=== PATIENT | female | born 1990 | race African-American/Black ===

== ENCOUNTER 2017-09-16 10:14 | Emergency (ER) | payer OTHER ==
[~2017-09-16] VITALS: Ht 167.6 cm; Wt 69.4 kg
[2017-09-16 10:58] LABS: microscopic required? YES; urine erythrocyte NEGATIVE (NEGATIVE)
[2017-09-16 12:29] VITALS: BP 111/79
== END 2017-09-16 12:27 | disposition home or self-care (01) ==
LOC: ED 10:14
DX: N39.0 Urinary tract infection, site not specified (principal); I10 Essential (primary) hypertension; R09.81 Nasal congestion; E11.9 Type 2 diabetes mellitus without complications

== ENCOUNTER 2017-12-11 08:51 | Emergency (ER) | payer MEDICAID ==
[~2017-12-11] VITALS: Ht 167.6 cm; Wt 71.4 kg
[2017-12-11 08:58] VITALS: BP 121/80
== END 2017-12-11 12:58 | disposition home or self-care (01) ==
LOC: ED 08:51
DX: N76.0 Acute vaginitis (principal); N63.0 Unspecified lump in unspecified breast; M41.9 Scoliosis, unspecified
CPT/HCPCS: 76641; 87491; 87591; Q0092